=== PATIENT | male | born 1950 | race Caucasian/White ===

== ENCOUNTER 2021-07-13 08:49 | Inpatient (IN) | payer MEDICARE, OTHER ==
[~2021-07-13] VITALS: Ht 185.4 cm; Wt 79.0 kg
[2021-07-13] MEDS ORDERED: HYDROmorphone 2 MG/ML, 1ML ONE (08:54)
[2021-07-13] MEDS ORDERED: HYDROmorphone 1 MG/ML, 1ML INJ IVPush PRN (09:00)
[2021-07-13] MEDS ORDERED: SODIUM CHLORIDE FLUSH 10ML SYR IVF ONE ×2 (09:00→10:30)
--- NOTE | 2021-07-13 09:00 | NUR ---
PT MEDICATED PER ERP ORDER FOR 5/10 R HIP PAIN. WOUNDS TO R ARM CLEANED, NEOSPORIN APPLIED, AND DRESSED WITH BANDAID. 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 LAST ATE TACOS AT 1730 YESTERDAY 07/12/21.
[2021-07-13] MEDS ORDERED: NEOSPORIN OINT. PKT 1 PACKET ONE (09:13)
--- NOTE | 2021-07-13 10:01 | NUR ---
RAPID COVID SWAB COMPLETED/WALKED TO LAB.
[2021-07-13 10:16] LABS: PROTHROMBIN TIME 10.7 Seconds (9.6-11.5)
[2021-07-13 10:17] LABS: ALANINE AMINOTRANSFERASE 66 U/L (12-78); ALBUMIN 3.7 g/dL (3.4-5.0); ANION GAP 10 mmol/L (5-15); CALCIUM 8.8 mg/dL (8.5-10.1); CHLORIDE 107 mmol/L (98-107); CREATININE 0.63 mg/dL (0.7-1.3)
[2021-07-13 10:19] LABS: ALKALINE PHOSPHATASE 75 U/L (45-117); TOTAL PROTEIN 7.4 g/dL (6.4-8.2)
[2021-07-13] MEDS ORDERED: ONDANSETRON ODT 4 MG PO PRN (11:00)
[2021-07-13] MEDS ORDERED: BACLOFEN 10 MG TABLET PO PRN (11:00)
[2021-07-13] MEDS ORDERED: BUTALB/APAP/CAFFEINE 50MG/325MG/40MG PO PRN ×2 (11:00)
[2021-07-13] MEDS ORDERED: hydrALAzine 20 MG/ML, 1ML IVPush PRN (11:00)
[2021-07-13] MEDS ORDERED: ONDANSETRON 2MG/ML, 2ML IVPush PRN (11:00)
[2021-07-13] MEDS ORDERED: ACETAMINOPHEN 325 MG TABLET PO PRN (11:00)
[2021-07-13] MEDS ORDERED: GUAIFENESIN/DM 200-20MG, 10ML UDC PO PRN (11:00)
[2021-07-13] MEDS ORDERED: ENALAPRILAT 1.25 MG/ML, 2ML IVPush PRN (11:00)
[2021-07-13 11:28] LABS: BASOPHILS % (AUTO) 1 % (0-1); EOSINOPHILS % (AUTO) 2 % (1-7); LYMPHOCYTES % (AUTO) 18 % (22-44); MEAN CORPUSCULAR HEMOGLOBIN 33.8 pg (27.5-34.5); MEAN CORPUSCULAR HGB CONC 34.4 g/dL (33.2-36.2); MONOCYTES % (AUTO) 12 % (2-9); NEUTROPHILS % (AUTO) 67 % (42-75); PLATELET COUNT 158 x10^3/uL (130-400); RED BLOOD COUNT 5.28 x10^6/uL (4.38-5.82); RED CELL DISTRIBUTION WIDTH 14.3 % (9.4-14.8)
--- NOTE | 2021-07-13 11:30 | NUR ---
REPORT TO [facility] ESTES READY FOR TRANSPORT TO FLOOR.
[2021-07-13] MEDS: HYDROcodone/APAP 5/325 TABLET PO PRN (12:16)
[2021-07-13 12:19] VITALS: BP 177/94
[2021-07-13 13:31] VITALS: BP 162/85
[2021-07-13] MEDS: GABAPENTIN 300 MG CAPSULE PO PRN (14:08)
[2021-07-13] MEDS ORDERED: BACLOFEN IT ONE (15:30)
[2021-07-13] MEDS ORDERED: BACLOFEN 10 MG TABLET PO ONE (16:00)
[2021-07-13] MEDS ORDERED: morphine SULFATE 10 MG/ML, 1ML IV PRN (16:30)
[2021-07-13 20:06] VITALS: BP 175/106
[2021-07-13] MEDS: morphine SULFATE 10 MG/ML, 1ML IV PRN (20:12)
[2021-07-13] MEDS: ENOXAPARIN 30 MG/0.3 ML SQ SCH (20:12)
[2021-07-13] MEDS: MELATONIN 5 MG TABLET PO SCH (20:13)
[2021-07-13] MEDS: NICOTINE 21 MG/24 HR PATCH.TD24 TD SCH (20:35)
[2021-07-14 02:00] VITALS: BP 160/85
[2021-07-14] MEDS: morphine SULFATE 10 MG/ML, 1ML IV PRN ×3 (04:00→13:44)
[2021-07-14 07:08] VITALS: BP 175/98
[2021-07-14] MEDS: ENOXAPARIN 30 MG/0.3 ML SQ SCH ×2 (07:30→19:52)
[2021-07-14 07:40] LABS: ANION GAP 8 mmol/L (5-15); CALCIUM 9.4 mg/dL (8.5-10.1); CHLORIDE 101 mmol/L (98-107); CREATININE 0.63 mg/dL (0.7-1.3)
[2021-07-14] MEDS ORDERED: ENOXAPARIN 30 MG/0.3 ML SQ SCH (09:00)
[2021-07-14] MEDS ORDERED: NICOTINE 21 MG/24 HR PATCH.TD24 TD SCH (09:00)
[2021-07-14] MEDS: GABAPENTIN 300 MG CAPSULE PO PRN (09:45)
[2021-07-14] MEDS: SENNA/DOCUSATE TABLET PO SCH (09:45)
[2021-07-14 12:15] VITALS: BP 169/88
[2021-07-14] MEDS ORDERED: CHLORHEXIDINE 15 ML UDC ONE (14:13)
[2021-07-14] MEDS ORDERED: MIDAZOLAM 1 MG/ML, 2ML ONE (15:19)
[2021-07-14] MEDS ORDERED: FENTANYL PF 250 MCG/5ML ONE (15:19)
[2021-07-14] MEDS ORDERED: DEXAMETHASONE 4 MG/ML, 1ML ONE (15:21)
[2021-07-14] MEDS ORDERED: BUPIVACAINE/PF-EPI 0.25% 1:200K ONE (15:21)
[2021-07-14] MEDS ORDERED: VANCOMYCIN 1,000 MG ONE (15:22)
[2021-07-14] MEDS ORDERED: TRANEXAMIC ACID 100 MG/ML, 10ML ONE (15:22)
[2021-07-14] MEDS ORDERED: EPHEDRINE 50 MG/ML, 1ML ONE (15:29)
[2021-07-14] MEDS ORDERED: CEFAZOLIN 1,000 MG ONE (15:29)
[2021-07-14] MEDS ORDERED: ONDANSETRON 2MG/ML, 2ML ONE (15:29)
[2021-07-14] MEDS ORDERED: LORazepam 2 MG/ML, 1ML IVPush PRN (17:30)
[2021-07-14] MEDS ORDERED: DIAZEPAM 5 MG/ML, 2ML IVPush PRN (17:30)
[2021-07-14] MEDS ORDERED: PROMETHAZINE 12.5 MG SUPP PR PRN (17:30)
[2021-07-14] MEDS ORDERED: ACETAMINOPHEN 325 MG TABLET PO PRN (17:30)
[2021-07-14] MEDS ORDERED: PROMETHAZINE 25 MG/ML, 1ML IVPush PRN (17:30)
[2021-07-14] MEDS ORDERED: DIPHENHYDRAMINE 50 MG/ML, 1ML IVPush PRN ×2 (17:30)
[2021-07-14] MEDS ORDERED: HYDROmorphone 1 MG/ML, 1ML INJ IVPush PRN (17:30)
[2021-07-14] MEDS ORDERED: hydrALAzine 20 MG/ML, 1ML IV PRN (17:30)
[2021-07-14] MEDS ORDERED: MEPERIDINE/PF 25MG/0.5ML IVPush PRN (17:30)
[2021-07-14] MEDS ORDERED: ALBUTEROL SULFATE 2.5 MG/3 ML NPPB PRN (17:30)
[2021-07-14] MEDS ORDERED: MIDAZOLAM 1 MG/ML, 2ML IV PRN (17:30)
[2021-07-14] MEDS ORDERED: FENTANYL PF 100 MCG/2ML IV PRN (17:30)
[2021-07-14] MEDS ORDERED: ONDANSETRON 2MG/ML, 2ML IVPush PRN (17:30)
[2021-07-14] MEDS ORDERED: EPHEDRINE 50 MG/ML, 1ML IVPush PRN (17:30)
[2021-07-14] MEDS ORDERED: OXYcodone 5 MG/5 ML ORAL.SOL UDC PO PRN (17:30)
[2021-07-14] MEDS ORDERED: LABETALOL 5MG/ML, 20ML IV PRN (17:30)
[2021-07-14] MEDS ORDERED: ACETAMINOPHEN 650 MG/20.3 ML UDC ONE (17:50)
[2021-07-14] MEDS ORDERED: OXYcodone 5 MG/5 ML ORAL.SOL UDC ONE (17:50)
[2021-07-14] MEDS ORDERED: CEFAZOLIN 1,000 MG IM SCH (18:00)
[2021-07-14 19:08] VITALS: BP 141/73
[2021-07-14] MEDS: NICOTINE 21 MG/24 HR PATCH.TD24 TD SCH (19:52)
[2021-07-14] MEDS: MELATONIN 5 MG TABLET PO SCH (19:53)
[2021-07-14] MEDS: CEFAZOLIN PMX 2GM/50ML 50 ML IVPB SCH (23:04)
[2021-07-15] VITALS: BP 107/66
[2021-07-15 04:00] VITALS: BP 139/76
[2021-07-15] MEDS: CEFAZOLIN PMX 2GM/50ML 50 ML IVPB SCH ×3 (06:31→23:49)
[2021-07-15 07:46] VITALS: BP 123/66
[2021-07-15] MEDS: NICOTINE 21 MG/24 HR PATCH.TD24 TD SCH (08:35)
[2021-07-15] MEDS: ENOXAPARIN 30 MG/0.3 ML SQ SCH ×2 (08:35→21:00)
[2021-07-15] MEDS: SENNA/DOCUSATE TABLET PO SCH (09:00)
[2021-07-15] MEDS: HYDROcodone/APAP 5/325 TABLET PO PRN (11:19)
[2021-07-15 12:37] VITALS: BP 145/80
[2021-07-15] MEDS ORDERED: POLYETHYLENE GLYCOL 17 GM PACKET PO PRN (15:00)
[2021-07-15 19:03] VITALS: BP 161/80
[2021-07-15] MEDS: MELATONIN 5 MG TABLET PO SCH (21:08)
[2021-07-16 00:35] VITALS: BP 167/84
[2021-07-16] MEDS: HYDROcodone/APAP 5/325 TABLET PO PRN ×3 (02:02→14:41)
[2021-07-16 06:19] LABS: BASOPHILS % (AUTO) 1 % (0-1); EOSINOPHILS % (AUTO) 3 % (1-7); LYMPHOCYTES % (AUTO) 17 % (22-44); MEAN CORPUSCULAR HGB CONC 34.6 g/dL (33.2-36.2); MEAN PLATELET VOLUME 9.3 fL (7.4-10.4); MONOCYTES % (AUTO) 14 % (2-9); NEUTROPHILS % (AUTO) 64 % (42-75); PLATELET COUNT 122 x10^3/uL (130-400); RED BLOOD COUNT 4.36 x10^6/uL (4.38-5.82); RED CELL DISTRIBUTION WIDTH 13.7 % (9.4-14.8)
[2021-07-16 06:30] LABS: ANION GAP 6 mmol/L (5-15); CALCIUM 9.1 mg/dL (8.5-10.1); CHLORIDE 103 mmol/L (98-107); CREATININE 0.55 mg/dL (0.7-1.3)
[2021-07-16 06:50] VITALS: BP 160/88
[2021-07-16] MEDS: NICOTINE 21 MG/24 HR PATCH.TD24 TD SCH (09:12)
[2021-07-16] MEDS: ENOXAPARIN 30 MG/0.3 ML SQ SCH (09:12)
[2021-07-16] MEDS: SENNA/DOCUSATE TABLET PO SCH (09:12)
[2021-07-16] MEDS ORDERED: POLYETHYLENE GLYCOL 17 GM PACKET PO ONE (09:30)
[2021-07-16] MEDS ORDERED: NICO-587 TD (12:44)
[2021-07-16] MEDS ORDERED: HYDR-2214 PO (12:44)
[2021-07-16] MEDS ORDERED: POLY17PO5 PO (12:44)
[2021-07-16] MEDS ORDERED: SENN-211 PO (12:44)
[2021-07-16 12:45] VITALS: BP 160/84
[2021-07-16] MEDS ORDERED: CHOL10003 PO (12:45)
[2021-07-16] MEDS ORDERED: ENOX40SY4 SQ (12:49)
== END 2021-07-16 15:12 | DRG 522 ==
LOC: ED 10:18 → EDIP 10:37 → 3N 12:01 → 4NE 07-14 18:26
PROVIDERS: ADMIT Family Medicine; ATTEND Family Medicine
PROC: 0SRR0JA Replacement of Right Hip Joint, Femoral Surface with Synthetic Substitute, Uncemented, Open Approach (ICD-10-PCS; principal; 2021-07-14 15:30)
DX: S72.011A Unspecified intracapsular fracture of right femur, initial encounter for closed fracture (principal); E55.9 Vitamin D deficiency, unspecified; F17.200 Nicotine dependence, unspecified, uncomplicated; S50.811A Abrasion of right forearm, initial encounter; Z96.642 Presence of left artificial hip joint; J44.9 Chronic obstructive pulmonary disease, unspecified; Z20.822 Contact with and (suspected) exposure to COVID-19; W01.0XXA Fall on same level from slipping, tripping and stumbling without subsequent striking against object, initial encounter; Y93.89 Activity, other specified; Y92.89 Other specified places as the place of occurrence of the external cause; Y99.8 Other external cause status
CPT/HCPCS: 36415; 71045; 80048; 80053; 82306; 83735; 85025; 85610; 87635; 93005; 96374; G0378; J0690; J1100; J1170; J1650; J2250; J2405; J3010; J3370; C1776; J0360; J2270

== ENCOUNTER 2021-08-17 18:15 | Observation (INO) | payer MEDICARE ==
[~2021-08-17] VITALS: Ht 177.8 cm; Wt 70.0 kg
[2021-08-18 06:48] VITALS: BP 138/79
== END 2021-08-18 06:48 | disposition home or self-care (01) ==
LOC: ED 21:47 → EDIP 23:48 → INTOOBSV 23:48 → UNDODISIN 08-18 06:48
PROVIDERS: ADMIT Emergency Medicine; ATTEND Emergency Medicine
DX: R45.851 Suicidal ideations (principal); E87.6 Hypokalemia; Z96.649 Presence of unspecified artificial hip joint